=== PATIENT | male | born 1990 | race African-American/Black ===

== ENCOUNTER 2018-02-07 08:37 | Emergency (ER) | payer SELFPAY ==
[~2018-02-07] VITALS: Ht 172.7 cm; Wt 70.0 kg
[2018-02-07 08:38] VITALS: BP 122/75
== END 2018-02-07 12:56 | disposition home or self-care (01) ==
LOC: ER 09:09
DX: S10.93XA Contusion of unspecified part of neck, initial encounter (principal); S09.8XXA Other specified injuries of head, initial encounter; F41.9 Anxiety disorder, unspecified; W18.39XA Other fall on same level, initial encounter; Y93.89 Activity, other specified; Y92.89 Other specified places as the place of occurrence of the external cause; Y99.8 Other external cause status
CPT/HCPCS: 70450; 72125; 99284